=== PATIENT | female | born 1965 | race Asian ===

== ENCOUNTER 2016-03-09 14:00 | Emergency (ER) | payer OTHER ==
[~2016-03-09] VITALS: Ht 162.6 cm; Wt 86.1 kg
[2016-03-09 14:06] VITALS: Ht 162.6 cm; Wt 86.1 kg
--- NOTE | 2016-03-09 17:36 | RADRPT ---
PROCEDURE: CT Brain without contrast. CLINICAL INDICATION: Trauma. Headache. TECHNIQUE: A CT of the brain without contrast was performed utilizing axial sections from the skul l base through the vertex. The patient was scanned without intravenous contrast enhancement. Sagitta l and coronal reformatted images were obtained using the data from the axial images. Total exam DLP is 654.38 mGy-cm. CTDIvol is 44.58 mGy. One or more of the following dose reduction techniques we re used: Automated exposure control, adjustment of the mA and/or kV according to patient size, use o f iterative reconstruction technique. COMPARISON: None available FINDINGS: There is normal ly-white matter differentiation. The ventricles and cisterns are normal. There is no intracranial hemorrhage or space-occupying lesion. There is no skull fracture or lytic lesion. IMPRESSION: 1. Normal noncontrast CT scan of the brain. 2. No intracranial hemorrhage. RPTAT: QQ .Will Wheeler MD, MD Date Time Electronically viewed and signed by .Will Wheeler MD, on 03/09/2016 17:35 .R/
[2016-03-09] MEDS ORDERED: ACET500C5 PO (18:22)
--- NOTE | 2016-03-09 18:26 | ERD ---
ER Documentation Chief Complaint Date/Time DATE: 03/09/16 TIME: 18:24 Chief Complaint MECH FALL, HIT HEAD, NO KO HPI This 50-year-old female complains of headache after falling and hitting her head yesterday. She tripped and sustained a bruise in her left forehead. She complains of dizziness and headache in the area of injury. She denies any visual changes, vomiting, neck pain, weakness, bowel or bladder incontinence. ROS All systems reviewed and are negative except as per history of present illness. Medications Home Meds Active Scripts Acetaminophen* (Tylophen*) 500 Mg Capsule, 1 CAP PO Q6H Y for PAIN AND OR ELEVATED TEMP, #15 CAP Prov:TANNER TAFOYA MD 03/09/16 Allergies Allergies: Coded Allergies: No Known Allergy (Unverified , 03/09/16) PMhx/Soc History of Surgery: No Anesthesia Reaction: No Hx Neurological Disorder: No Hx Respiratory Disorders: No Hx Cardiac Disorders: No Hx Psychiatric Problems: Yes (depressiom) Hx Miscellaneous Medical Probl: No Hx Alcohol Use: No Hx Substance Use: No Hx Tobacco Use: No Smoking Status: Never smoker Physical Exam Vitals Vital Signs Date Time Temp Pulse Resp B/P Pulse Ox O2 Delivery O2 Flow Rate FiO2 03/09/16 14:06 98.1 72 20 148/78 99 Physical Exam Const: [] Alert, [id number]. Head: Atraumatic. There is some bruising and mild swelling of the left forehead area. There is no warmth, erythema, bleeding. Eyes: Normal Conjunctiva. Eyes are PERRLA and extraocular movements intact. ENT: Normal External Ears, Nose and Mouth. Neck: Full range of motion..~ No meningismus. Neck nontender. Resp: Clear to auscultation bilaterally Cardio: Regular rate and rhythm, no murmurs Abd: Soft, non tender, non distended. Normal bowel sounds Skin: No petechiae or rashes Back: No midline or flank tenderness Ext: No cyanosis, or edema Neur: Awake and alert. Normal gait. No appreciable focal neurologic deficits. Cranial nerves II through XII grossly intact. Psych: Normal Mood and Affect Procedures/MDM Given the neurologic symptoms post head injury a CT brain was performed which is read as normal by the radiologist. Patient was stable amatory throughout ED course. Patient presents after head trauma with signs and symptoms of a bruise on her left forehead without evidence of bleeding, mass-effect, neurologic deficit, bacterial infection. She will discharged home with a prescription of Tylenol and further observation at home. She will be advised to return to the ER for new or worsening symptoms with primary doctor this week. The patient was stable with no new complaints during the ER course. Clinically, there is no current evidence to suggest meningitis, sepsis, acute abdomen, pneumonia, acute coronary syndrome, pulmonary embolism, or any other emergent condition appearing to require further evaluation or hospitalization. The patient should certainly return for any new or worsening symptoms per the aftercare instructions. They should otherwise follow-up with her primary care doctor for reevaluation this week. Departure Diagnosis: Primary Impression: Head injury Encounter type: initial encounter Qualified Code: S09.90XA - Head injury, initial encounter Condition: Stable Patient Instructions: HEAD INJURY, No Wake-Up (Adult) Additional Instructions: CT read as normal. Recheck for new or worsening symptoms or primary care doctor. TANNER TAFOYA MD Mar 09, 2016 18:26
[2016-03-09 18:37] VITALS: BP 138/72; PULSE 77; RESP 18; TEMP 98.1
== END 2016-03-09 18:38 | disposition home or self-care (01) ==
LOC: FTE 14:00
DX: S09.90XA Unspecified injury of head, initial encounter (principal); R51 Headache; W01.198A Fall on same level from slipping, tripping and stumbling with subsequent striking against other object, initial encounter; Y92.9 Unspecified place or not applicable
CPT/HCPCS: 70450; Z7502

== ENCOUNTER 2016-08-16 20:21 | Emergency (ER) | END 2016-08-16 21:54 | disposition home or self-care (01) | DX: R05 Cough (principal); J20.9 Acute bronchitis, unspecified; I10 Essential (primary) hypertension; E03.9 Hypothyroidism, unspecified ==